=== PATIENT | male | born 1990 | race Two or more races ===

== ENCOUNTER 2022-11-09 09:34 | Emergency (ER) | payer SELFPAY ==
[~2022-11-09] VITALS: Ht 172.7 cm; Wt 60.8 kg
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
[2022-11-09] MEDS ORDERED: HYDROCODONE/APAP 5/325MG TABLET ONE (09:49)
[2022-11-09] MEDS ORDERED: HYDROCODONE/APAP 5/325MG TABLET PO ONE (10:00)
[2022-11-09] MEDS ORDERED: IOHEXOL-300 100 ML VIAL IV ONE (10:06)
[2022-11-09] MEDS ORDERED: IV NS 0.9% 250 ML IV ONE (10:07)
[2022-11-09] MEDS ORDERED: CT SWABBABLE VALVE TRANS SET 1 EA INFUS.SET MC ONE (10:07)
--- NOTE | 2022-11-09 10:07 | NUR ---
PT TAKEN TO CT VIA RLOKESH.
[2022-11-09] MEDS ORDERED: IBUP-1957 PO (11:59)
--- NOTE | 2022-11-09 12:14 | NUR ---
Patient discharged to home in stable condition. Written and verbal after care instructions given. Patient verbalizes understanding of instruction. IV removed. Catheter intact and site benign. Pressure and 4x4 applied to site. No bleeding noted.
[2022-11-09 12:52] VITALS: BP 132/76
== END 2022-11-09 12:16 | disposition home or self-care (01) ==
LOC: ER 09:36
DX: S63.502A Unspecified sprain of left wrist, initial encounter (principal); S93.401A Sprain of unspecified ligament of right ankle, initial encounter; V89.2XXA Person injured in unspecified motor-vehicle accident, traffic, initial encounter; Y93.89 Activity, other specified; Y92.89 Other specified places as the place of occurrence of the external cause; Y99.8 Other external cause status
CPT/HCPCS: 99285; 72125; 29125; 73610; 71260; 70450; 74177; 73110; J7050; Q9967